=== PATIENT | male | born 1965 | race American Indian/Alaskan Native ===

== ENCOUNTER 2021-03-07 10:24 | Emergency (ER) | payer SELFPAY ==
[2021-03-07] MEDS ORDERED: IBUPROFEN 800 MG TAB PO ONE (10:31)
--- NOTE | 2021-03-07 11:59 | Emergency Department Report ---
Upper Extremity - [facility] Chief Complaint: Extremity Injury, Upper Stated Complaint: LT HAND LACERATION Time Seen by Provider: 03/07/21 10:35 Upper Extremity: Left Hand Occurred When: Today Mechanism: Crush Severity: severe Symptoms: Yes Pain with Movement, Yes Swelling, Yes Bruising/Ecchymosis, Yes Laceration or Abrasion, No Deformity, No Limited Range of Movement, No Numbness, No Weakness Other History: 55-year-old -Indian male presents to the emergency room reporting that he crushed his left hand while at work on a machine that sprung back. Patient reports that the pain is worse in his pinky. Patient reports that the pain is 8 out of 10. Patient reports he is not up-to-date on his tetanus. ED Review of Systems ROS: Stated complaint: LT HAND LACERATION Other details as noted in HPI ED Past Medical Hx - Medications Home Medications: Home Medications Medication Instructions Recorded Confirmed Last Taken Type HYDROcodone/APAP 7.5-325 [Salters 1 each PO Q6HR PRN #15 tablet 03/07/21 Unknown Rx 7.5/325] cephALEXin [Keflex] 500 mg PO Q8HR 10 Days #30 cap 03/07/21 Unknown Rx Upper Extremity Exam - Exam General: Vital signs noted. No distress. Alert and acting appropriately. Head and Torso: No HEENT Abnormality, No Neck Tenderness, No Chest/Lungs Abnormality, No Abdominal Tenderness, No Back Tenderness Shoulder Exam: Yes Normal Range of Motion in Shoulder, No Shoulder Tenderness, No Clavicle Tenderness, No Shoulder Deformity, No AC Joint Tenderness Arm Exam: No Arm/Humerus Tenderness, No Arm Deformity Elbow: No Elbow Tenderness, No Normal Range of Motion in Elbow, No Elbow Deformity Forearm: No Forearm Tenderness, No Forearm Deformity, No Pain with Pronation, No Pain with Supination Wrist: Yes Normal ROM in Wrist, No Wrist Tenderness, No Wrist Deformity, No Snuffbox Tenderness, No Pain with Axial Thumb Compression Hand: Yes Digit Tenderness (Fifth digit), Yes Normal ROM in Digit(s), No Hand Tenderness, No Hand Deformity, No Digit(s) Deformity, No Tendon Dysfunction CMS Exam: Yes Broken Skin, Yes Normal Distal Pulses, Yes Normal Capillary Refill, Yes Normal Distal Sensation ED Course Vital Signs 03/07/21 10:33 Temperature 98.7 F Pulse Rate 108 H Respiratory 16 Rate Blood Pressure 155/117 [Right] O2 Sat by Pulse 100 Oximetry ED Medical Decision Making - Radiology Data Radiology results: report reviewed dy Comments [facility] [address] [place] [address] XRay Report Signed Patient: GISELA LOMBARDO MR#: [id number] : 1965 Acct:[id number] Age/Sex: 55 / M ADM Date: 03/07/21 Loc: ED Attending Dr: Ordering Physician: KAYA SALINAS MD Date of Service: 03/07/21 Procedure(s): XR hand 2V LT Accession Number(s): [id number] cc: KAYA SALINAS MD Fluoro Time In Minutes: LEFT HAND 2 VIEWS INDICATION: Crush injury. COMPARISON: None. IMPRESSION: A mildly comminuted fracture is identified involving the tuft of the fifth digit. The remaining bony structures are intact. No joint pathology is detected. Signer Name: Michael Pittman Jr, MD Signed: 03/07/2021 12:01 PM Workstation Name: [id number] Transcribed By: TTR Dictated By: MICHAEL PITTMAN JR, MD Electronically Authenticated By: MICHAEL PITTMAN JR, MD Signed Date/Time: 03/07/21 1201 DD/ 1200 TD/TT: - Medical Decision Making 55-year-old -Indian male presents to the emergency room reporting that he crushed his left hand while at work on a machine that sprung back. Patient reports that the pain is worse in his pinky. Patient reports that the pain is 8 out of 10. Patient reports he is not up-to-date on his tetanus. X-ray pain medications been ordered. Placed a communication order for for tech to soak finger in Betadine and water sterile bandage in place a finger splint. Discussed with patient that he will be required to complete his antibiotics pain medication as needed and follow-up with a hand specialist. Critical care attestation.: If time is entered above; I have spent that time in minutes in the direct care of this critically ill patient, excluding procedure time. ED Disposition Clinical Impression: Open fracture of finger of left hand Disposition: HOME / SELF CARE / HOMELESS Is pt being admited?: No Does the pt Need Aspirin: No Condition: Stable Instructions: Finger Fracture, Adult, [id number] Additional Instructions: It is very important you complete your antibiotics as prescribed. Pain medication as needed. And to please follow-up with a hand specialist. The importance is if the infection gets to the bone you increase the risk of losing your finger or infection spreads throughout. I have listed several providers for your convenience. Prescriptions: cephALEXin [Keflex] 500 mg PO Q8HR 10 Days #30 cap HYDROcodone/APAP 7.5-325 [Salters 7.5/325] 1 each PO Q6HR PRN #15 tablet PRN Reason: Pain Referrals: PRIMARY CAREMD [Primary Care Provider] - 3-5 Days PEBBLES MALONE MD [Staff Physician] - 3-5 Days [facility] [Provider Group] - 3-5 Days Forms: Work/School Release Form(ED) Time of Disposition: 12:23
[2021-03-07] MEDS ORDERED: TETANUS,DIPH,PERTUSS(ACELL) VACCINE 0.5 ML SYRINGE IM ONE (12:03)
[2021-03-07] MEDS ORDERED: HYDROcodone/ACETAMINOPHEN 7.5-325MG TAB PO ONE (12:05)
--- NOTE | 2021-03-07 12:05 | XRay Report ---
LEFT HAND 2 VIEWS INDICATION: Crush injury. COMPARISON: None. IMPRESSION: A mildly comminuted fracture is identified involving the tuft of the fifth digit. The re maining bony structures are intact. No joint pathology is detected. Signer Name: Michael Pittman Jr, MD Signed: 03/07/2021 12:01 PM Workstation Name: [id number]
[2021-03-07 13:03] VITALS: BP 140/98
== END 2021-03-07 13:24 | disposition home or self-care (01) ==
LOC: ED 10:24
DX: S62.607A Fracture of unspecified phalanx of left little finger, initial encounter for closed fracture (principal); Z79.899 Other long term (current) drug therapy; W23.0XXA Caught, crushed, jammed, or pinched between moving objects, initial encounter; Y93.89 Activity, other specified; Y92.89 Other specified places as the place of occurrence of the external cause; Y99.8 Other external cause status
CPT/HCPCS: 90471; 90715; 99283